=== PATIENT | female | born 1995 | race Caucasian/White ===

== ENCOUNTER 2018-11-16 11:53 | Outpatient (CLI) | payer OTHER ==
[~2018-11-16] VITALS: Ht 154.9 cm; Wt 74.9 kg
[2018-11-16 12:17] VITALS: BP 150/88; PULSE 91
[2018-11-16 13:15] VITALS: BP 106/72; PULSE 81
--- NOTE | 2018-11-16 13:15 | NUR ---
Pt transferred by cart to [facility]. Alert and oriented, denies pain at this time. Bandaid to back CD&I. Family bedside
[2018-11-16 13:30] VITALS: BP 107/76; PULSE 52
[2018-11-16 13:36] LABS: GLUCOSE,CSF 53 mg/dL (40-70)
[2018-11-16 13:45] VITALS: BP 107/74; PULSE 82
[2018-11-16 14:00] VITALS: BP 99/68; PULSE 82
[2018-11-16 14:10] LABS: TOTAL PROTEIN,CSF 35 mg/dL (15-45)
[2018-11-16 14:15] VITALS: BP 114/74; PULSE 82
[2018-11-16 14:19] LABS: CSF APPEARANCE CLEAR; CSF COLOR COLORLESS; CSF MONONUCLEAR 100 % (70-100); CSF POLYMORPHONUCLEAR 0 % (0-6); CSF RBC 6 /mm3 (0-0)
== END 2018-11-16 14:15 | disposition home or self-care (01) ==
LOC: COL.RAD 11:53
PROVIDERS: Ophthalmology
DX: H47.11 Papilledema associated with increased intracranial pressure (principal); G93.2 Benign intracranial hypertension